=== PATIENT | male | born 1955 | race Caucasian/White ===

== ENCOUNTER 2017-06-17 15:29 | Emergency (ER) | payer MEDICARE, OTHER ==
[2017-06-17] MEDS ORDERED: ALBUTEROL SULFATE/IPRATROPIUM 3 ML NEBU IH ONE ×2 (15:42→15:45)
[2017-06-17] MEDS ORDERED: MORPHINE SULFATE 2 MG/ML DISP.SYRIN IV ONE (15:47)
[2017-06-17] MEDS ORDERED: ONDANSETRON HCL/PF 2 MG/ML VIAL IV ONE (15:47)
--- NOTE | 2017-06-17 15:47 | ERNOTE ---
Dyspnea - Date Date of Service: 06/17/17 - General Presenting Symptoms: shortness of breath Time Seen by Provider: 06/17/17 15:41 Source: patient, RN notes reviewed Exam Limitations: clinical condition - Immun/Allergies/Home Medications Immunizations: IMMUNIZATION HX Immunizations Up to Date Yes History of Influenza Vaccine Yes Hx Pneumococcal Vaccination Yes Allergies/Adverse Reactions: Allergies No Known Allergies Allergy (Verified 06/17/17 15:42) Home Medications: HOME MEDICATIONS Albuterol Sulfate [Proair Hfa] 8.5 gm IH Q4H PRN 06/11/13 [Last Taken Unknown] Budesonide/Formoterol Fumarate [Symbicort 160-4.5 Mcg Inhaler] 1 gm IH DAILY [Last Taken Unknown] Tiotropium [place] [Spiriva] 18 mcg IH DAILY 06/11/13 [Last Taken Unknown] Levofloxacin [Levaquin] 500 mg PO DAILY #10 tab 06/17/17 [Last Taken Unknown] Promethazine HCl/Codeine [Prometh-Codein 6.25-10 mg/5 ml] 5 ml PO Q4H PRN #120 ml 06/17/17 [Last Taken Unknown] - History of Present Illness Narrative: 62 y/o male brought to the ED by EMS for dyspnea. He reports developing a cough last evening but he had not felt well for some time. He is also having left sided chest pain. He has multiple myeloma. His PCP is in [place]. He has COPD as well and is a former smoker. He is not on home oxygen. Severity: severe Treatment [employer]: by patient, oxygen, albuterol Initiating event: Reports: unknown Associated Symptoms-Dyspnea: Reports: chest pain/discomfort, cough, weakness, loss of appetite. Denies: fever/chills, sweating, palpitations, wheezing, leg/ calf pain, ankle/leg swelling, dizziness, lightheadedness, tingling of hands/ face Prior Treatment: Denies: recently seen Review of Systems - Review of Systems Constitutional: Present: fatigue, malaise. Absent: recent illness EYE: Present: no symptoms reported ENT: Absent: nose congestion, sore throat Respiratory: Present: See HPI Cardiology: Present: See HPI Gastrointestinal/Abdominal: Absent: nausea, vomiting, diarrhea, abdominal pain Genitourinary: Absent: dysuria, decreased urinary output Musculoskeletal: Absent: muscle pain, joint pain Skin: Absent: rash, lesions Neurological: Absent: headache, dizziness/light-headedness Endocrine: Present: no symptoms reported Hematologic/Lymphatic: Absent: easy bruising, easy bleeding Psych: Present: no symptoms reported - Patient's Past Medical History Patient History - Medical: No pertinent hx Patient History - Cardiac/Respiratory: COPD Patient History - Cancer: Myeloma Patient History - Surgical Procedures: No surgical history, Noncontributory Patient History - Other: None - Social History Living Situations: home Abuse History: No History of abuse Psych History: No pertinent hx Smoking Status: Former smoker Alcohol Use: rarely Drug Use: none - Immunizations Immunizations Up to Date: Yes Hx Pneumococcal Vaccination: Yes History of Influenza Vaccine: Yes Physical Exam - Physical Exam General Appearance: Present: alert, moderate distress, thin Head Exam: Present: normal inspection Eye Exam: Normal inspection: bilateral Ears, Nose, Throat: Present: nasal congestion, normal pharynx. Absent: sinus pain/drainage, dry mucous membranes Neck: Present: normal inspection, nontender, supple Respiratory: Present: chest nontender, respiratory distress, accessory muscle use, decreased breath sounds, expiration (prolonged). Absent: crackles, rhonchi , wheezing Cardiovascular/Chest: Present: no murmur, normal peripheral pulses, tachycardia Gastrointestinal/Abdominal: Present: nontender, nondistended, soft Extremity Exam: Present: normal inspection, no edema Neurological Exam: Present: alert, oriented, normal mood/affect, no motor/ sensory deficits Skin Exam: Present: normal color, warm/dry ED Progress - Results and Orders Patient's Lab Results:: I have reviewed the patient's lab results. - Vital Signs Patient's Vital Signs:: I have reviewed the patient's vital signs. Vital Signs: Vital Signs 06/17/17 15:35 Temperature 37.7 C H Pulse Rate 115 H Respiratory 43 H Rate Blood Pressure 124/71 O2 Sat by Pulse 93 Oximetry - EKG EKG: other - Sinus tach EKG read: Reviewed by me - X-Ray X-Ray #1 X-Ray: chest Interpretation: Reviewed by me X-ray Comments: IMPRESSION: 1. Left lower lobe and lingular pulmonary infiltrates noted. Correlate clinically for infection/ pneumonia versus asymmetric pulmonary edema. Recommend follow-up to document resolution as atypical neoplasm cannot be entirely ruled out. 2. Emphysematous changes. 3. Worsening extrinsic impression on the right side of the trachea as above. Probably related to previously identified right-sided thyroid nodule. Consider follow-up by routine thyroid ultrasound to evaluate for any significant change/enlargement. Electronically signed by Sherin Perkins M.D.. - CT/Ultrasound CT/Ultrasound Narrative: CTA chest shows no evidence of pulmonary embolis - Progress/Reassessment Chief Complaint: Dyspnea Progress:: Improved Progress Note-Subjective: 06/17/17 18:05 Chest pain resolved with Morphine 2 mg. Oxygen saturation initially 88% with oxygen at 1 liter via nasal canula, currently is 91% with oxygen at 3 liters. Respirations have slowed from the mid 30's to 26. CXR shows LLL pneumonia, will initiate Rocephin. Awaiting chest CT results as Ddimer was elevated. Plan - Plan Plan: Chest CT was negative for PE. Admission for pneumonia and hypoxia was discussed with hospitalist who had agreed to admit the patient. The patient then said that he cannot stay overnight because he has a dog at home that he has no one to care for. Also started on Levaquin. Patient signed AMA despite my repeated attempts to get him to stay. Departure Clinical Impression: Hypoxia Left lower lobe pneumonia Qualifiers: Pneumonia type: due to unspecified organism Qualified Code(s): J18.1 - Lobar pneumonia, unspecified organism - Departure Disposition: Against medical advice Condition: Fair Instructions: Community-Acquired Pneumonia, Adult, [id number] Additional Instructions: Rest and drink plenty of fluids Continue your inhalers as prescribed Tylenol for fever Return for worsening symptoms Prescriptions: Levofloxacin [Levaquin] 500 mg PO DAILY #10 tab Promethazine HCl/Codeine [Prometh-Codein 6.25-10 mg/5 ml] 5 ml PO Q4H PRN #120 ml PRN Reason: Cough
[2017-06-17] MEDS ORDERED: MORPHINE SULFATE 2 MG/ML DISP.SYRIN ONE (15:49)
[2017-06-17] MEDS ORDERED: ONDANSETRON HCL/PF 2 MG/ML VIAL ONE (15:49)
[2017-06-17 16:03] LABS: Hematocrit 34.6 % (42.0-52.0); Hemoglobin 11.7 gm/dL (13.5-18.0); Mean Cell Volume 86.1 fl (78-100); Mean Corpuscular Hemoglobin 29.1 pg (27-31); Mean Corpuscular Hgb Conc 33.8 g/dl (32-36); Mean Platelet Volume 10.8 fl (6.0-9.5); Neutrophil # 10.3 K/mm3 (1.3-6.0); Neutrophil % 89.9 % (42-75.0); Platelet Count 189 K/mm3 (150-450); Red Blood Count 4.02 M/mm3 (4.7-6.0); Red Cell Distribution Width 14.8 % (11.5-14.0); White Blood Count 11.4 K/mm3 (4.0-10.5)
[2017-06-17 16:29] LABS: ALT 15 U/L (19-67); AST 17 U/L (0-48); Albumin * 2.4 gm/dl (3.4-5.0); Alkaline Phosphatase * 58 U/L (50-170); Anion Gap 16.4 mmol/L (6.8-13.8); BNP * 320 pg/mL (5-175); BUN/Creatinine Ratio 15.4 (9.0-21.6); Bilirubin, Total 0.7 mg/dL (0.0-1.1); Blood Urea Nitrogen 19 mg/dL (6-23); Ca. Corrected For Albumin 8.8 mg/dL (8.4-10.2); Calcium * 7.8 mg/dL (7.9-10.9); Carbon Dioxide 18.3 mmol/L (24-32.6); Chloride 100 mmol/L (97-106); Glucose * 113 mg/dL (70-110); Potassium 3.7 mmol/L (3.4-4.6); Sodium 131 mmol/L (132-142); Total Protein 8.8 gm/dL (6.2-8.2); Troponin I Less than 0.017 ng/ml (0.00-0.10)
[2017-06-17] MEDS ORDERED: ACETAMINOPHEN 325 MG TABLET ONE (16:38)
[2017-06-17] MEDS ORDERED: ACETAMINOPHEN 325 MG TABLET PO ONE (16:39)
[2017-06-17] MEDS ORDERED: AMOX TR/POTASSIUM CLAVULANATE 875 MG TABLET PO ONE (16:57)
[2017-06-17] MEDS ORDERED: CODEINE PHOSPHATE/GUAIFENESIN 5 ML UDC PO ONE (19:02)
[2017-06-17] MEDS ORDERED: LEVOFLOXACIN 500 MG TABLET PO ONE (19:02)
[2017-06-17] MEDS ORDERED: LEVOFLOXACIN 500 MG TABLET ONE (19:03)
[2017-06-17] MEDS ORDERED: CODEINE PHOSPHATE/GUAIFENESIN 5 ML UDC ONE (19:03)
[2017-06-17 19:21] VITALS: BP 108/48
== END 2017-06-17 19:20 | disposition left against medical advice (07) ==
LOC: ER 15:29
DX: R09.02 Hypoxemia (principal); J18.1 Lobar pneumonia, unspecified organism; J44.9 Chronic obstructive pulmonary disease, unspecified; Z85.79 Personal history of other malignant neoplasms of lymphoid, hematopoietic and related tissues; Z53.29 Procedure and treatment not carried out because of patient's decision for other reasons
CPT/HCPCS: 36415; 36600; 71010; 71275; 80053; 82803; 83605; 83880; 84484; 85025; 85379; 87040; 93005; 94640; 94760; 96365; 96375; 99285; J2405